=== PATIENT | male | born 1980 | race Caucasian/White ===

== ENCOUNTER 2023-05-31 18:13 | Emergency (ER) | payer BC ==
[~2023-05-31] VITALS: Ht 190.5 cm; Wt 106.6 kg
[2023-05-31] MEDS ORDERED: CEPHALEXIN500 M1 PO (19:33)
== END 2023-05-31 21:45 | disposition home or self-care (01) ==
LOC: ED 18:13
DX: S61.411A Laceration without foreign body of right hand, initial encounter (principal); W26.8XXA Contact with other sharp object(s), not elsewhere classified, initial encounter; Y93.89 Activity, other specified; Y92.89 Other specified places as the place of occurrence of the external cause; Y99.8 Other external cause status